=== PATIENT | male | born 1960 | race Caucasian/White ===

== ENCOUNTER 2020-03-28 20:53 | Inpatient (IN) | payer OTHER ==
[~2020-03-28] VITALS: Ht 177.8 cm; Wt 99.8 kg
[2020-03-28 20:55] VITALS: BP 129/63
[2020-03-28] MEDS ORDERED: LISINOPRIL30 MG PO (21:03)
[2020-03-28 21:10] LABS: URINE BILIRUBIN NEGATIVE (Negative); URINE BLOOD NEGATIVE (Negative); URINE CLARITY CLEAR; URINE COLOR YELLOW; URINE GLUCOSE-RANDOM* 2+ (Negative); URINE KETONES NEGATIVE (Negative); URINE LEUKOCYTES-REFLEX NEGATIVE (Negative); URINE NITRITE-REFLEX NEGATIVE (Negative); URINE PROTEIN (DIPSTICK) NEGATIVE (Negative); URINE SPECIFIC GRAVITY 1.015 (1.005-1.035)
[2020-03-28 21:21] LABS: ABSOLUTE NEUTROPHILS 7.9 thou/uL (1.4-8.2); BASOPHILS 0.6 % (0.0-2.0); EOSINOPHILS 0.3 % (0.0-3.0); HEMATOCRIT 21.3 % (42.0-52.0); HEMOGLOBIN 7.1 gm/dL (14.0-18.0); LYMPHOCYTES 12.1 % (24.0-44.0); MCH 26.2 pg (26.0-34.0); MCHC 33.2 g/dL (28.0-37.0); MCV 78.7 fL (80.0-100.0); MONOCYTES 6.7 % (1.0-8.0); PLATELET COUNT 408 thou/uL (150-400); POLYS 80.3 % (36.0-66.0); RBC 2.71 mil/uL (4.50-6.00); RDW 21.4 % (10.5-14.5); WBC 9.8 thou/uL (4.0-11.0)
[2020-03-28 21:41] LABS: ALBUMIN 3.2 g/dL (3.4-5.0); ANION GAP 8 mmol/L (7-16); BUN 15 mg/dL (7-18); CALCIUM 8.8 mg/dL (8.5-10.1); CHLORIDE 94 mmol/L (98-107); CO2 33 mmol/L (21-32); CREATININE 1.4 mg/dL (0.7-1.3); GLUCOSE 202 mg/dL (74-106); MAGNESIUM 1.9 mg/dL (1.8-2.4); SGOT 15 U/L (15-37); SGPT 32 U/L (30-65); SODIUM 135 mmol/L (136-145); TOTAL BILIRUBIN 0.2 mg/dL (0.2-1.0); TOTAL PROTEIN 7.4 g/dL (6.4-8.2); TROPONIN-I <0.06 ng/mL (<0.06)
[2020-03-28 21:44] LABS: POTASSIUM 2.9 mmol/L (3.5-5.1)
[2020-03-28 23:04] LABS: % SATURATION 3 % (20-39); IRON 13 ug/dL (65-175); TIBC 460 ug/dL (250-450)
[2020-03-29] VITALS (11 sets, daily range): BP systolic 103–124; BP diastolic 60–77
--- NOTE | 2020-03-29 02:57 | NUR ---
ASSUMED CARE OF PT AT 1900HRS. PT AOX4 AND LETS NEEDS BE KNOWN. FALL PRECAUTION IN PLACE. FOR SAFETY. PT WAS ORIENTED TO THE UNIT AND HIS ROOM. PT WAS ABLE TO ANSWER ALL ADMISSION RELATED QUESTIONS AND SIGN OWN CONSENTS. ASSESSMENT CHARTED. ORDERS RECEIVED AND STARTED. PT DENIES PAIN, NAUSEA OR SOA. BLOOD TX INITIATED PER ER MD ORDER. PT WAS ABLE TO GET COMFORTABLE AND SLEEP. VSS AND NO S/S OF ACUTE DISTRESS. WILL CONTINUE TO MONITOR.
[2020-03-29 05:53] LABS: HEMATOCRIT 22.9 % (42.0-52.0); HEMOGLOBIN 7.3 gm/dL (14.0-18.0); MCH 26.2 pg (26.0-34.0); MCHC 32.1 g/dL (28.0-37.0); MCV 81.5 fL (80.0-100.0); RBC 2.8 mil/uL (4.50-6.00); RDW 21.8 % (10.5-14.5); WBC 7.3 thou/uL (4.0-11.0)
--- NOTE | 2020-03-29 05:53 | NUR ---
ASSUMED CARE OF PT FROM ED AT 0100HRS. PT AOX4 AND LETS NEEDS BE KNOWN. FALL PRECAUTION IN PLACE FOR SAFETY DUE TO NEAR SYNCOPE. PT WAS ORTIENTED TO THE UNIT AND HIS ROOM. PT WAS ABLE TO ANSWER ALL ADMISSION RELATED QUESTIONS AND SIGN CONSENTS. PT IS SR ON TELE. ORDERS RECEIVED AND STARTED. PT RECEIVED BLOOD THIS SHIFT WITH NO REACTION. PT WAS ABLE TO TO GET COMFORTABLE AND SLEEP PART OF THE SHIFT. VSS, NO S/S OF ACUTE DISTRESS. WILL CONTINUE TO MONITOR.
[2020-03-29 06:06] LABS: CALCIUM 8.3 mg/dL (8.5-10.1); MAGNESIUM 1.9 mg/dL (1.8-2.4); POTASSIUM 3.6 mmol/L (3.5-5.1)
--- NOTE | 2020-03-29 09:30 | EKG ---
[facility] [place] [address] ELECTROCARDIOGRAM REPORT Name: GENIE CORLEY Room #: 456-P ADM IN M.R.#: [id number] Admission: 03/28/20 Attend Phys: Julien Dumont MD Discharge: Date of : 62 Report #: [id number] THIS REPORT FOR: cc: RADHA Duff family physician/PCP RADHA - Sherin family physician/PCP Anil Brennan MD 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 /EPI
--- NOTE | 2020-03-29 16:24 | NUR ---
Assumed pt care this am, VS stable. Maintained on clear liquids. Alert and oriented x 4 makes needs known. Has a steady gait and ia able to ambulate from the bed the the toilet with ease. GI consult called, pt verbalizaes hed rather go home than wait and stay in the hospital. informed.
--- NOTE | 2020-03-30 02:53 | NUR ---
ASSUMED CARE OF PT AT 1900HRS. PT IS AOX4 AND LETS NEEDS BE KNOWN. FALL PRECAUTION IN PLACE. PT RUNNING SR ON TELE. PT DENIES PAIN, NAUSEA, OR SOA. ASSESSMENT CHARTED. PT IS UPSET AND WOULD LIKE TO GO HOME CYN. PROTONIX DRIP CONTINUED. PT WAS ABLE TO GET COMFORTABLE AND SLEEP PART OF THE SHIFT. VSS AND NO S/S OF ACUTE DISTRESS. WILL CONTINUE TO MONITOR.
[2020-03-30 05:35] LABS: HEMOGLOBIN 6.9 gm/dL (14.0-18.0); WBC 5.9 thou/uL (4.0-11.0)
[2020-03-30 05:39] LABS: HEMATOCRIT 21.9 % (42.0-52.0); MCH 25.6 pg (26.0-34.0); MCHC 31.5 g/dL (28.0-37.0); MCV 81.4 fL (80.0-100.0); RBC 2.69 mil/uL (4.50-6.00); RDW 21.1 % (10.5-14.5)
[2020-03-30 05:48] LABS: CREATININE 0.8 mg/dL (0.7-1.3); POTASSIUM 4.5 mmol/L (3.5-5.1)
[2020-03-30 06:06] LABS: GLYCOHEMOGLOBIN (HGB A1C) 6.1 % (4.8-5.6)
--- NOTE | 2020-03-30 08:52 | NUR ---
While receiving report from the night nurse, pt called and stated he wants to be disconnected and will be leaving. Pt mentioned that he met with the GI MD who had told him he could do a colonoscopy and egd, pt declined the plan of care. Informed the pt that his hemoglobin is 6.9 and an order for 1 unit of blood was needed and has been ordered. Explained the repercussions if transfusion was not to happen. Pt politely said he will not stay and would rather go home and work with his primary and get his diet right so that his issue with the low Hgb will resolve. Pt expressed dissatiafaction over the fact that he was not seen yesterday and it took the MD a day to come, and with the plan of care by the GI he could have done this over the phone, thus he is leaving AMA. AMA documentation signed, IV removed, labs and mediction list given pt is now dc.
== END 2020-03-30 08:24 | disposition left against medical advice (07) | DRG 811 ==
LOC: ER 20:53 → EROBS 23:32 → 4W 03-29 01:00
PROVIDERS: Emergency Medicine; Nurse Practitioner Family; ADMIT Hospitalist; ATTEND Hospitalist
PROC: 30233N1 Transfusion of Nonautologous Red Blood Cells into Peripheral Vein, Percutaneous Approach (ICD-10-PCS; principal; 2020-03-29)
DX: D64.9 Anemia, unspecified (principal); N17.0 Acute kidney failure with tubular necrosis; E87.6 Hypokalemia; I95.9 Hypotension, unspecified; R55 Syncope and collapse; I10 Essential (primary) hypertension; F17.210 Nicotine dependence, cigarettes, uncomplicated; R91.8 Other nonspecific abnormal finding of lung field; Z79.899 Other long term (current) drug therapy
CPT/HCPCS: 10045